=== PATIENT | female | born 1955 ===

== ENCOUNTER 2017-12-11 07:15 | Inpatient (IN) | payer OTHER ==
[2017-12-11] VITALS (14 sets, daily range): BP systolic 90–159; BP diastolic 42–85
[~2017-12-11] VITALS: Ht 149.9 cm; Wt 70.3 kg
[2017-12-11] MEDS ORDERED: Thrombin 5000 units TOPIC ONE (07:36)
[2017-12-11] MEDS ORDERED: Lidocaine 2% MPF 5ml Vial INJ ONE (07:36)
[2017-12-11] MEDS ORDERED: fentaNYL 100 mcg/2 mL IV ONE ×2 (07:36→09:10)
[2017-12-11] MEDS ORDERED: Lidocaine 1% 10mg/ml/Epi 0.005mg/ml 30ml vial INJ ONE (07:36)
[2017-12-11] MEDS ORDERED: Bacitracin 50000 Units Vial ONE (07:37)
[2017-12-11] MEDS ORDERED: Bupivacaine 0.5% Inj 30 ml vial INJ ONE (07:37)
[2017-12-11] MEDS ORDERED: Bupivacaine 0.25% Inj 30ml INJ ONE (07:37)
[2017-12-11] MEDS ORDERED: INSULIN 75/25 SQ (08:04)
--- NOTE | 2017-12-11 08:13 | Pre-Procedure Note/Attestation ---
Pre-Procedure Note/Attestation Complete Prior to Procedure Procedure Narrative: lumbar decompression Indications for Procedure Pre-Operative Diagnosis: Lumbar disc hernia/stenosis Attestation I attest that I discussed the nature of the procedure; its benefits; risks and complications; and alternatives (and the risks and benefits of such alternatives ), prior to the procedure, with the patient (or the patient's legal student services representative). I attest that, if there was a reasonable possibility of needing a blood transfusion, the patient (or the patient's legal student services representative) was given the [facility] standardized written summary, pursuant to the [place] Blood Safety Act ([place] Health and Safety Code # 1645, as amended). I attest that I re-evaluated the patient just prior to the surgery and that there has been no change in the patient's H&P, except as documented below: MERRILL LEVINE December 11, 2017 08:13
[2017-12-11] MEDS ORDERED: Neostigmine 1mg/ml 10ml Inj ONE (08:30)
[2017-12-11] MEDS ORDERED: Sterile Water Irrig 1000ml IRRIG ONE (08:30)
[2017-12-11] MEDS ORDERED: NS Irrig 1000ml ONE (08:30)
[2017-12-11] MEDS ORDERED: Succinylcholine 20mg/ml 10ml vial ONE (08:30)
[2017-12-11] MEDS ORDERED: Iothalamate Meglumine 60% 30ML INJ ONE (08:30)
[2017-12-11] MEDS ORDERED: LR 1000ml ONE (08:30)
[2017-12-11] MEDS ORDERED: Glycopyrrolate 0.2mg/ml 1ml Vial ONE (08:30)
[2017-12-11] MEDS ORDERED: NS Irrig 1000ml IRRIG ONE (08:30)
[2017-12-11] MEDS ORDERED: Metoclopramide 10mg/2ml Inj ONE (08:30)
[2017-12-11] MEDS ORDERED: Zemuron 50mg/5ml Inj IV ONE (08:31)
[2017-12-11] MEDS ORDERED: Midazolam 2mg/2ml Inj ONE (09:10)
[2017-12-11] MEDS ORDERED: Propofol 200mg/20ml IV ONE ×2 (09:10→09:11)
[2017-12-11] MEDS ORDERED: Dexamethasone 4mg/ml vial ONE (09:14)
[2017-12-11] MEDS ORDERED: LR 1000ml 1,000 ML IVLG SCH (09:35)
--- NOTE | 2017-12-11 09:40 | Anethesia Preoperative Eval ---
Anesthesia Pre-op PMH/ROS General Date of Evaluation: December 11, 2017 Time of Evaluation: 08:20 Anesthesiologist: Aureliano ASA Score: ASA 2 Mallampati Score Class I : Soft palate, uvula, fauces, pillars visible Class II: Soft palate, uvula, fauces visible Class III: Soft palate, base of uvula visible Class IV: Only hard plate visible Mallampati Classification: Class II Surgeon: Chaparro Diagnosis: Lumbar Radiculopathy Surgical Procedure: L4-S1 dcompression and foaminotomy Anesthesia History: none Family History: no anesthesia problems Allergies: Coded Allergies: No Known Allergies (Unverified , 12/09/17) Medications: see eMAR Anesthesia Pre-op Phys. Exam Physician Exam Last Vital Signs Date Time Temp Pulse Resp B/P (MAP) Pulse Ox O2 Delivery O2 Flow Rate FiO2 12/11/17 08:14 98.7 78 18 159/85 98 Room Air 98.7 Constitutional: NAD Neurologic: CN 2-12 intact Cardiovascular: RRR Respiratory: CTA Gastrointestinal: S/NT/ND Airway Exam Mallampati Score: Class II MO: full ROM: full Teeth: intact Anesthesia Pre-op A/P Risk Assessment & Plan Plan: GA Status Change Before Surgery: No Pre-Antibiotics Drug: Ancef Given Within 1 Hr of Incision: Yes Time Given: 09:00 Brandon Bedoya M.D. December 11, 2017 09:40
[2017-12-11] MEDS ORDERED: Midazolam 2mg/2ml Inj IVP PRN (09:45)
[2017-12-11] MEDS ORDERED: fentaNYL 100 mcg/2 mL IV PRN (09:45)
[2017-12-11] MEDS ORDERED: Metoclopramide 10mg/2ml Inj IVP PRN (09:45)
[2017-12-11] MEDS ORDERED: Ketorolac 30mg Inj IV PRN (09:45)
[2017-12-11] MEDS ORDERED: DiphenhydrAMINE 50mg/ml Inj IVP PRN (09:45)
[2017-12-11] MEDS ORDERED: Acetaminophen (Non formulary) 100 ML IV ONE (10:00)
--- NOTE | 2017-12-11 10:30 | Immediate Post-Op Evaluation ---
Immediate Post-Op Evalulation Immediate Post-Op Evalulation Procedure: L4-S1 decompression Date of Evaluation: December 11, 2017 Time of Evaluation: 12:00 IV Fluids: 1000 Blood Products: 0 Estimated Blood Loss: 50 Urinary Output: 200 Blood Pressure Systolic: 110 Blood Pressure Diastolic: 80 Pulse Rate: 78 Respiratory Rate: 18 O2 Sat by Pulse Oximetry: 99 Temperature (Fahrenheit): 98 Pain Score (1-10): 0 Nausea: No Vomiting: No Patient Status: awake, reacts, patent, extubated Hydration Status: adequate Drug: ancef Given Within 1 Hr of Incision: No Time Given: 09:00 Brandon Bedoya M.D. December 11, 2017 10:30
--- NOTE | 2017-12-11 11:03 | Brief Operative Note ---
Immediate Post Operative Note Operative Note Chief Complaint: Left sciatica Pre-op Diagnosis: Lumbar disc hernia/stenosis Procedure: Left L4-5 central and Far lateral decompression Post-op Diagnosis: same Post-op Diagnosis: same as pre-op Findings: consistent w/pre-op dx studies Surgeon: Yolanda Levine Account Manager Employee Benefits: Suni Ellison Anesthesiologist: Naman Anesthesia: general Specimen: yes - Disc Complications: none Condition: stable Fluids: 100 Estimated Blood Loss: minimal Drains: none Implant(s) used?: No MERRILL LEVINE December 11, 2017 11:03
[2017-12-11] MEDS: NS w/KCl 20mEq 1,000 ML IV SCH ×2 (12:37→23:45)
--- NOTE | 2017-12-11 12:38 | Diagnostic Imaging Report ---
Indication: Back pain Comparison: None Findings: 2 fluoroscopic views of the lumbar spine were obtained. Localization noted posterior to L4-5. Fluoroscopic time is 8.2 seconds. IMPRESSION: Intraoperative imaging
[2017-12-11] MEDS ORDERED: Chloraseptic Spray 20mL Bottle ORAL PRN (14:00)
[2017-12-11] MEDS ORDERED: traMADol 50mg tab ORAL PRN (14:00)
[2017-12-11] MEDS ORDERED: NovoLOG Insulin Flexpen SUBQ ONE (14:00)
[2017-12-11] MEDS ORDERED: Tylenol #3 tab (300mg/30mg) ORAL PRN (14:00)
[2017-12-11] MEDS ORDERED: Chloraseptic Spray 20mL Bottle ORAL ONE (14:30)
[2017-12-11] MEDS: ceFAZolin sod 1 GM in D5W 55 ML IV SCH ×2 (16:07→23:46)
[2017-12-11] MEDS: Morphine Sulfate 4mg/ml Inj IM PRN ×3 (16:18→23:51)
--- NOTE | 2017-12-11 16:45 | Operative Note - Dictated ---
DATE OF OPERATION: 12/11/2017 PREOPERATIVE DIAGNOSES: 1. L4-L5 disk herniation. 2. L3-L4 and L5-S1 disk herniation. POSTOPERATIVE DIAGNOSES: 1. L4-L5 disk herniation. 2. L3-L4 and L5-S1 disk herniation. PROCEDURES: 1. Left L4-L5 medial facetectomy, decompression, osteotomy. 2. Left L5 neurolysis. 3. Left L5 foraminotomy and decompression. 4. Left L4 decompression. 5. Far lateral transpedicular decompression at left L4-L5. 6. Placement of fat graft over this exposed dura and nerve. 7. L5-S1 left-sided disk herniation reaching all the way to the opposite side, removing disk centrally and to the right. 8. Epidurogram using an epidural catheter and Omnipaque. 9. Epidural block using 100 mcg of fentanyl and 0.25% Marcaine 4 mL. 10. Use of intraoperative microscope. 11. Microscopic plastic closure of the wound 2.5 cm in length. 12. Use of intraoperative fluoroscopy for an [id number]-hmy-[id number]-half. 13. X-ray of the lumbar spine interpretation x3. 14. Interpretation of MRI of the lumbar spine intraoperatively. 15. SSEP evaluation upper and lower extremities for an hour and a half. 16. Motor potential upper and lower extremities evaluation for an hour and a half. 17. Left L5 and S1 demonstrated deficit in SSEP and both came back to normal after L4-L5 central and far lateral decompression. 18. The next levels were not done due to the abnormal signals of the nerves and improvement of L4 and L5 on the left side to normal. SURGEON: Parvez Mayfield M.D. CUSTOMER RECORDS DIVISION SUPERVISOR SURGEON: Rafaela Ellison M.D. ANESTHESIA: ____ anesthesia. COMPLICATIONS: None. CONDITION: Transfer to recovery room under stable condition. INDICATION FOR PROCEDURE: The patient is a 62-year-old female with left-sided leg pain and some right-sided symptoms, but majority of the pain being on the left at this point, did not respond to conservative management. The patient was offered surgery after conservative management failed. The risks of surgery, which included, but not limited to, infection, bleeding, stroke, , damage to surrounding structures, need for future operative procedures, no improvement of symptoms, worsening of symptoms, other unfortunate risks including risk of reherniation and scar formation have been explained to the patient as well. The patient signed a consent form and we proceeded to surgery. DESCRIPTION OF PROCEDURE: After informed consent was obtained, the patient was taken to operating room where she was placed under general anesthesia and intubation. The area of interest was shaved, prepped, and draped. A spinal needle was inserted and confirmed the position using fluoroscopy. At this point, after injecting the incision with Marcaine with epinephrine 0.5% 4 mL, incision was made using a #10 blade knife was taken to the fascia, which was opened to the left of midline. We exposed the bottom of L4 and top of the L5. Microscope was brought in after confirming the position using the fluoroscopy and marker. The retractors were placed. Under microscope, we then performed laminotomy, medial facetectomy of L4 and then L5 and top of L5. We exposed the L5 nerve root, which had lot of adhesions. Under the L5, there was acute disk that was removed immediately and there were lot of adhesions that had to be broken off with lot of engorged vasculature. The nerve was mobilized along with the dura. Underneath, there was torn off pieces of disk that had lodged under the dura and the nerves that were removed. Annulotomy was performed and there were torn off pieces consistent with acute disk herniation that were removed from inside the disk space and under the ligament. We turned our attention to the far lateral and again, we pulled out the torn off pieces from under and over the ligament and anulus. After extensive decompression all the way to the other side, we had some improvement on the right, but the left L5 and L4 nerve roots came back to normal in signal. We had decompressed the L4 and L5 adequately. There was no need to proceed with the other levels. The patient was noted to have somewhat soft bone. We clearly preserved as much facet as was possible and pars was protected and preserved. Epidural space was inspected for any bleeding. Absolute hemostasis was obtained. We placed the catheter in the epidural space and confirmed the position using dye and then subsequently injected with Marcaine and Fentanyl. The catheter was removed. Hemostasis was obtained. Replaced some fat on top of the dura and then proceeded to obtain hemostasis. Closed the fascia using 0 Vicryl sutures followed by interrupted 2-0 Vicryl sutures to close the skin and 4-0 Monocryl and Dermabond were applied. The patient was transferred to the recovery room, moving all extremities after extubation counts were correct. I immediately discussed the case with her sister in the waiting area as well. Findings correlated with MRI. Parvez Mayfield M.D. DR: MANUEL JOB#: [id number] CC:
[2017-12-11] MEDS: NovoLOG Insulin Flexpen SUBQ SCH ×2 (17:12→20:36)
[2017-12-11] MEDS: Docusate 100mg cap ORAL SCH (17:41)
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
[2017-12-12] VITALS: BP 129/65
[2017-12-12 04:00] VITALS: BP 121/56
[2017-12-12] MEDS: NovoLOG Insulin Flexpen SUBQ SCH ×2 (06:33→11:43)
[2017-12-12 08:00] VITALS: BP 132/60
[2017-12-12] MEDS: Docusate 100mg cap ORAL SCH (08:12)
[2017-12-12] MEDS: ceFAZolin sod 1 GM in D5W 55 ML IV SCH (08:12)
--- NOTE | 2017-12-12 10:40 | 48 Hour Post Anesthesia Eval ---
Post Anesthesia Evaluation Procedure: L4-S1 decompression Date of Evaluation: December 12, 2017 Time of Evaluation: 10:37 Blood Pressure Systolic: 135 0: 68 Pulse Rate: 72 Respiratory Rate: 22 Temperature (Fahrenheit): 97.8 O2 Sat by Pulse Oximetry: 98 Airway: patent Nausea: No Vomiting: No Pain Intensity: 3 Hydration Status: adequate Cardiopulmonary Status: stable Mental Status/LOC: patient returned to baseline Follow-up Care/Observations: n/a Post-Anesthesia Complications: none Follow-up care needed: N/A MURIEL GONZALEZ M.D. December 12, 2017 10:40
[2017-12-12 12:00] VITALS: BP 146/56
[2017-12-12] MEDS ORDERED: ACETAMINOPHEN-1 EAC1 ORAL (12:03)
[2017-12-12] MEDS ORDERED: Tubing IV Secondary IV ONE (13:52)
--- NOTE | 2017-12-12 17:15 | Progress Note ---
DATE: 12/12/2017 ACUTE PAIN MANAGEMENT PHYSICIAN PROGRESS NOTE MEDICATIONS: Medication administration record reviewed. Medications include IV fluids, Colace, Protonix, and insulin. P.r.n. medications include Phenergan, Chloraseptic spray, Benadryl, Zofran, Mylanta, Ultram, Tylenol No. 3, and morphine. LABORATORY STUDIES: No interval laboratory studies. VITAL SIGNS: Afebrile, pulse 72, respirations 22, blood pressure 132/60, and oxygen saturation 98% on room air. Accu-Chek glucose readings between 110 and 172. I spent over 60 minutes in consultation today. I saw the patient at the bedside with the nurse RNAfia, and the charge nurse, RNSilke. I also spoke with the surgeon, Dr. Mayfield. I spoke with the physical therapist, Bob, who had his physical therapy team walk with the patient this morning. The patient did well. The patient's nausea symptoms have improved and she has been tolerating advancing diet without any difficulties. The patient has no nausea problems. The patient denies shortness of breath or chest pain. The patient is in good spirits. She has been alternating doses between morphine and Tylenol No. 3 and tramadol. I have left a prescription for Tylenol No. 3 for outpatient usage. The patient has transportation set up and a friend at the bedside. The patient will follow up with Dr. Mayfield in the outpatient surgical clinic. I agree with discharge trial home at this time. Brandon Oliveira M.D. DR: ALIS JOB#: [id number] CC:
--- NOTE | 2017-12-13 00:30 | Discharge Summary ---
DATE OF ADMISSION: 12/11/2017 DATE OF DISCHARGE: 12/12/2017 ADMITTING DIAGNOSIS: Multilevel lumbar disc herniation. POSTOPERATIVE DIAGNOSIS: Multilevel lumbar disc herniation. ADMITTING PHYSICIAN AND SURGEON: Parvez Mayfield M.D. FIELD PARTY MANAGER SURGEON: Rafaela Ellison M.D. CONSULTING PHYSICIAN: Brandon Oliveira M.D., Pain Management. HOSPITAL COURSE: The patient was admitted for elective lumbar spine surgery on 12/12/2017 for her lumbar spine pain and disc herniation. She underwent extreme lateral decompression at L4-L5 and L5-S1, multilevel surgery. She left the operating room and was transferred to recovery room in stable condition. She did well in the recovery room and was transferred to the orthopedic floor in stable condition. She had serial monitoring of her vital signs and blood sugars. Her diabetic management control was stable during the hospital course. She ambulated with physical therapy. She had no medical issues and was cleared for discharge home on in stable condition. There were no problems or complications. Brandon Oliveira M.D. DR: ALIS JOB#: [id number] CC:
== END 2017-12-12 13:53 | disposition home or self-care (01) | DRG 517 ==
LOC: SDSOVERFLO 07:15 → 3E 12:07
PROC: 01NB0ZZ Release Lumbar Nerve, Open Approach (ICD-10-PCS; principal; 2017-12-11 08:30)
DX: M51.26 Other intervertebral disc displacement, lumbar region (principal); E11.9 Type 2 diabetes mellitus without complications; Z79.4 Long term (current) use of insulin; V89.2XXS Person injured in unspecified motor-vehicle accident, traffic, sequela; E66.9 Obesity, unspecified; G89.18 Other acute postprocedural pain; R11.2 Nausea with vomiting, unspecified
CPT/HCPCS: 72020; 76001; 82962; 94003; 94150; J1815; J2250; J2405; J2710; J2765